=== PATIENT | female | born 1970 | race Caucasian/White ===

== ENCOUNTER 2017-10-24 23:54 | Emergency (ER) | payer OTHER ==
[~2017-10-24] VITALS: Ht 162.5 cm; Wt 113.4 kg
[~2017-10-24 23:54] MED LIST: BIRTH CONTROL1 EAC1 PO; HYDROCODONE BIT1 T11 PO; IBU800 MG PO; PREDNISONE20 M1 PO; PRILOSEC OTC20 MG PO; ZANTAC150 MG PO; ZOFRAN4 MG PO
[2017-10-25] MEDS ORDERED: IBU800 MG PO (00:46)
== END 2017-10-25 01:01 | disposition home or self-care (01) ==
LOC: ED 23:54
DX: I80.02 Phlebitis and thrombophlebitis of superficial vessels of left lower extremity (principal); K21.9 Gastro-esophageal reflux disease without esophagitis; Z88.8 Allergy status to other drugs, medicaments and biological substances

== ENCOUNTER → 2017-10-25 | Outpatient (CLI) | payer OTHER | END | disposition home or self-care (01) | LOC: US 09:53 | DX: M79.605 Pain in left leg (principal); R22.42 Localized swelling, mass and lump, left lower limb ==

== ENCOUNTER → 2019-10-15 | Outpatient (CLI) | payer OTHER | END | disposition home or self-care (01) | LOC: RAD 10:30 | DX: M99.11 Subluxation complex (vertebral) of cervical region (principal) ==

== ENCOUNTER → 2019-12-28 | Outpatient (CLI) | payer OTHER | END | disposition home or self-care (01) | LOC: US 12:30 | PROVIDERS: ATTEND Nurse Practitioner Women's Health | DX: R93.89 Abnormal findings on diagnostic imaging of other specified body structures (principal); N94.6 Dysmenorrhea, unspecified ==

== ENCOUNTER 2021-05-19 10:19 | Emergency (ER) | payer OTHER ==
[~2021-05-19] VITALS: Wt 95.7 kg
== END 2021-05-19 13:25 | disposition home or self-care (01) ==
LOC: ED 10:19
DX: M25.561 Pain in right knee (principal); Z88.8 Allergy status to other drugs, medicaments and biological substances; Z79.899 Other long term (current) drug therapy; Z98.890 Other specified postprocedural states; X50.1XXA Overexertion from prolonged static or awkward postures, initial encounter; Y93.89 Activity, other specified; Y92.89 Other specified places as the place of occurrence of the external cause; Y99.8 Other external cause status